=== PATIENT | female | born 1990 | race Caucasian/White ===

== ENCOUNTER 2016-10-30 20:40 | Observation (INO) | payer BC ==
[~2016-10-30] VITALS: Ht 165.1 cm; Wt 67.7 kg
[~2016-10-30 20:40] MED LIST: DOCU100T10 PO; FERR325C PO; HYDR-4246 PO; IBUP-1547 PO
[2016-10-30 20:45] VITALS: BP 126/72; PULSE 67; RESP 20; TEMP 98.1; O2SAT 100
--- OUTSIDE RECORDS SUMMARY | 2016-10-30 20:48 | XMS REPORT | Continuity of Care Document ---
Author Author [facility] Organization [facility] Address Unknown Phone Unavailable Support Name Relationship Address Phone LETTY ANDRES MD Caregiver [address] [place] [address] [address] [place] [address] Unavailable LETTY ANDRES MD Caregiver [address] [place] [address] [address] [place] [address] Unavailable NINA PINZON Next Of Kin [address] [place], [place] [address] Insurance Providers Guarantor Zoe Duarte Address [address] [place] [address] Email DENIED 16 Payer [facility] Policy Number [id number] Subscriber's Name BryceNina Francisco Relationship 01 Spouse Group Number [id number] Advance Directives Directive Response Recorded Date/Time Ordered Resuscitation Status Full Code 10/23/16 6:27am Resuscitation Documents on File No 10/23/16 7:10am DPOA for Healthcare Only No 10/23/16 7:10am Living Will No 10/23/16 7:10am Problems Active Problems Medical Problem Onset Date Status Dehydration Unknown Unknown RUQ abdominal pain Unknown Medications Current Home Medications Medication Dose Units Route Directions Days Qty Instructions Start Date Docusate Sodium (Stool Softener) 100 Mg Tablet 1 Tab Oral Daily 10/10/16 Ferrous Sulfate (Iron) 325 Mg Capsule.er 1 Tab Oral Daily BEST WITH FOOD. 10/10/16 Hydrocodone/Acetaminophen (Salkum 5-325 Tablet) 5-325 Tablet 1-2 Tab Oral Every 4 Hours as needed for Pain 20 Tablet 10/24/16 Ibuprofen 800 Mg Tablet 800 Mg Oral Q8h @ 0000/0800/1600 30 Tablet 10/24/16 Past Home Medications Medication Directions Ordered Status Doxylamine/Pyridoxine Hcl (Lamar Araujo 10-10 Mg Tablet) 1 Each Tablet., 2 Oral As Needed 04/16/16 Discontinued Hydrocodone/Acetaminophen (Salkum 5-325 Tablet) 5-325 Tablet, 1 Tab Oral Every 4 Hours as needed for Pain 04/16/16 Discontinued Metoprolol Tartrate 25 Mg Tablet, 25 Mg Oral Twice Daily With Meals as needed for Anxiety/Airhunger/Agitation 09/10/16 Discontinued Tenaha-3 Fatty Acids/Fish Oil (Tenaha 3 1,000 Mg Softgel) 1 Each Capsule, Oral Daily 04/16/16 Discontinued Pnv95/Ferrous Fumarate/Fa ( Tablet) 1 Each Tablet, 1 Tab Oral Daily 04/16/16 Discontinued Social History Social History Problem Response Recorded Date/Time Onset Date Status Reason for Hospitalization 10/24/2016 6:21pm Not Applicable Not Applicable Hx Substance Use No 10/23/2016 7:10am Not Applicable Not Applicable Query Response Start Date Stop Date Smoking Status Never smoker Hospital Discharge Instructions Instructions: Care Instructions: Reason for Hospitalization: I was in the hospital because (patient own words): to have a baby Discharge Diet: regular Discharge Activity: as reviewed Follow Up Appointments: Appointment with Dr Andres 12-04-16 at 2:00pm Pending Lab / Results: No Pending Lab Patient Instructions: See Dismissal Instructions Wound/Incision Care: n/a Pain Management/Treatment: RXs provided Expected Signs/Symptoms: as reviewed Notify Physician If: any concerns During Business Hours:: Please call the physician's office at [phone] After Business Hours:: Please call [phone] and have the milk drying machine operator page the physician. Condition at time of discharge: Good Plan of Care Discharge Date 10/24/16 7:18pm Disposition 01 DISCHARGED HOME, SELF-CARE Instructions/Education Provided [facility] Vaginal Delivery Prescriptions See Medication Section Care Plan and Goals See Discharge Instructions Section Functional Status Query Response Date Recorded Mobility Status Ambulatory October 24, 2016 6:21pm Assistive Devices None October 24, 2016 6:21pm Activity Limitations None October 24, 2016 6:21pm Feeding Ability Independent October 24, 2016 6:21pm Toileting Ability Independent October 24, 2016 6:21pm Grooming Ability Independent October 24, 2016 6:21pm Dressing Ability Independent October 24, 2016 6:21pm Driving Ability Independent October 24, 2016 6:21pm Housework Ability Independent October 24, 2016 6:21pm Meal Preparation Ability Independent October 24, 2016 6:21pm Stair Climbing Ability Independent October 24, 2016 6:21pm Ability to complete ADL's impeded by No change October 24, 2016 6:21pm Cognitive/Perceptual Impairments None October 24, 2016 6:21pm Preferred Method of Learning Hands on October 23, 2016 6:46am Allergies, Adverse Reactions, Alerts Allergen Type Severity Reaction Status Last Updated Latex Allergy Intermediate RASH Active 10/23/16 Immunizations Query Response on File Recorded Date/Time Hx Influenza Vaccination Y fall 201404/16/16 11:56am Hx Pneumococcal Vaccination No 04/16/16 11:56am Hx Influenza Vaccination Y fall 201404/16/16 11:56am Influenza Vaccine Hx Apr 2016 10/23/16 7:10am Tdap Vaccine Hx 201310/23/16 7:10am Vital Signs Acute Vital Signs Vital Response Date/Time Temperature (Fahrenheit) 98.5 deg F (96.8 - 99.1) 10/24/2016 7:10pm Temperature (Calculated Celsius) 36.15946 degrees C (36.0 - 37.3) 10/24/2016 7:10pm Pulse Rate (adult) 75 bpm (60 - 100) 10/24/2016 7:10pm Respiratory Rate 16 breaths/min (10 - 20) 10/24/2016 7:10pm O2 Sat by Pulse Oximetry 97 % (90 - 100) 10/24/2016 9:57am Oxygen Delivery Method Room Air 10/24/2016 9:57am Blood Pressure 105/72 mm Hg 10/24/2016 7:10pm Blood Pressure Source Automatic Cuff 10/24/2016 7:10pm Height (Feet) 5 feet 10/23/2016 7:10am Height (Inches) 4.00 inches 10/23/2016 7:10am Weight (Kilograms) 77.200 kg 10/23/2016 7:10am Height 5 ft 4 in 10/10/2016 10:26am Weight 170.20 lb 10/23/2016 7:10am Body Mass Index 29.0 kg/m^2 10/23/2016 7:10am Results Laboratory Results Test Name Result Units Flags Reference Collection Date/Time Result Date/ Time Comments Urine Collection Type CLEANCATCH-MIDSTREAM 09/25/2016 8:56pm 2016 9:01pm Urine Color YELLOW YELLOW 09/25/2016 8:56pm 09/25/2016 9:01pm Urine Turbidity CLEAR CLEAR 09/25/2016 8:56pm 09/25/2016 9:01pm Urine Specific [place] <=1.005 L 1.015-1.025 09/25/2016 8:56pm 2016 9:01pm Urine pH 6.0 5.0-8.0 09/25/2016 8:56pm 09/25/2016 9:01pm Urine Leukocyte Esterase NEGATIVE NEGATIVE 09/25/2016 8:56pm 2016 9:01pm Urine Nitrite NEGATIVE NEGATIVE 09/25/2016 8:56pm 09/25/2016 9:01pm Urine Protein NEGATIVE NEGATIVE 09/25/2016 8:56pm 09/25/2016 9:01pm Urine Glucose (UA) NEGATIVE NEGATIVE 09/25/2016 8:56pm 09/25/2016 9: 01pm Urine Ketones NEGATIVE NEGATIVE 09/25/2016 8:56pm 09/25/2016 9:01pm Urine Urobilinogen 0.2 EU/DL NORMAL 09/25/2016 8:56pm 09/25/2016 9: 01pm Urine Bilirubin NEGATIVE NEGATIVE 09/25/2016 8:56pm 09/25/2016 9: 01pm Urine Blood NEGATIVE NEGATIVE 09/25/2016 8:56pm 09/25/2016 9:01pm Urinalysis Comment MICROSCOPIC NOT IND. 09/25/2016 8:56pm 2016 9:01pm White Blood Count 6.7 T/MM3 4.5-11.0 10/23/2016 6:49am 10/23/2016 7: 00am Red Blood Count 3.51 M/MM3 L 4.00-5.20 10/23/2016 6:49am 10/23/2016 7: 00am Hemoglobin 8.8 GM/DL L 12-16 10/23/2016 6:49am 10/23/2016 7:00am Hematocrit 28.8 % L 36-46 10/23/2016 6:49am 10/23/2016 7:00am Mean Corpuscular Volume 82.1 UM3 80-100 10/23/2016 6:49am 10/23/2016 7: 00am Mean Corpuscular Hemoglobin 25.1 UUG L 26-34 10/23/2016 6:49am 2016 7:00am Mean Corpuscular Hemoglobin Concent 30.6 GM/DL L 31-37 10/23/2016 6:49am 10/23/2016 7:00am RDW Standard Deviation 37.7 FL 36.9-50.2 10/23/2016 6:49am 10/23/2016 7 :00am Platelet Count 293 T/MM3 130-400 10/23/2016 6:49am 10/23/2016 7:00am Mean Platelet Volume 9.6 UM3 9.4-12.4 10/23/2016 6:49am 10/23/2016 7: 00am Procedures Procedure Status Date Provider(s) non-stress test Completed 09/09/16 non-stress test Completed 09/25/16 Urinalysis auto w/o scope Completed 09/25/16 Eval amniotic fluid protein Completed 09/25/16 Encounters Encounter Location Arrival/Admit Date Discharge/Depart Date Attending Provider Discharged Inpatient [facility] 10/23/16 6:22am 10/24/16 7:18pm LETTY ANDRES MD Departed [facility] 09/25/16 8:43pm 09/25/16 10:00pm LETTY ANDRES MD Departed [facility] 09/09/16 11:38pm 09/10/16 12:29am LETTY ANDRES MD
[2016-10-30 21:54] LABS: BASOPHILS % (AUTO) 0.3 % (0-2); EOSINOPHILS # (AUTO) 0.1 T/MM3 (0-0.5); EOSINOPHILS % (AUTO) 0.9 % (0-4); HCT - HEMATOCRIT 27.7 % (36-46); HGB - HEMOGLOBIN 8.6 GM/DL (12-16); IMMATURE GRANULOCYTE # (AUTO) 0.08 T/MM3 (0.00-0.03); IMMATURE GRANULOCYTE % (AUTO) 0.9 % (0.0-0.5); LYMPHOCYTES # (AUTO) 1.3 T/MM3 (1-4.8); LYMPHOCYTES % (AUTO) 14.6 % (23-45); MEAN CORPUSCULAR HGB 25.4 UUG (26-34); MEAN CORPUSCULAR VOLUME 81.7 UM3 (80-100); MONOCYTES # (AUTO) 0.5 T/MM3 (0-0.8); MONOCYTES % (AUTO) 5.5 % (0-9.0); NEUTROPHILS #(AUTO)-ABSOLUTE 6.8 T/MM3 (1.8-7.7); NEUTROPHILS % (AUTO) 77.8 % (33-66); RED BLOOD COUNT 3.39 M/MM3 (4.00-5.20); WBC - WHITE BLOOD COUNT 8.7 T/MM3 (4.5-11.0)
[2016-10-30 22:02] LABS: ALBUMIN 3.7 G/DL (3.5-5.0); ALBUMIN/GLOBULIN RATIO 1.2 RATIO (1.1-2.2); ALKALINE PHOSPHATASE 141 U/L (38-126); ALT (SGPT) 28 U/L (9-52); ANION GAP 9 MEQ/L (5-15); AST (SGOT) 16 U/L (14-36); BUN/CREATININE RATIO 17 RATIO (6-26); CALCIUM 8.7 MG/DL (8.4-10.2); CHLORIDE 108 MEQ/L (98-107); CO2 - CARBON DIOXIDE 25 MEQ/L (22-30); CREATININE 0.6 MG/DL (0.7-1.2); GLOMERULAR FILTRATION RATE 122; GLUCOSE 88 MG/DL (65-110); POTASSIUM 3.8 MEQ/L (3.6-5); SODIUM 142 MEQ/L (134-144); TOTAL PROTEIN 6.8 G/DL (6.3-8.2)
--- NOTE | 2016-10-30 22:24 | HPF ---
CHIEF COMPLAINT Pelvic pain one week . HISTORY OF PRESENT ILLNESS This 26-year-old white female, G2, P2, approximately one week called me this evening complaining of pelvic pain. She saw Dr. Andres today in the office and Dr. Andres started her on Augmentin, Zoloft and Ambien for uterine infection/pelvic pain, depression and not sleeping. She reports that she has taken one Augmentin and the pain has progressively gotten worse in her pelvis. She does not have a thermometer at home. She has states it also hurts when she urinates. She has not had a bowel movement in two days and she is worried about constipation as well. PAST MEDICAL HISTORY 1. Two previous vaginal deliveries, most recent being about a week ago by Dr. Andres. 2. Anemia. 3. History of seizures with her first and a negative seizure workup. 4. History of kidney stones. 5. History of Chlamydia in 2016. 6. History of abnormal Pap smear. PAST SURGICAL HISTORY [place] tooth extraction. ALLERGIES None. MEDICATIONS Augmentin, Zoloft and Ambien all started today with only one dose of Augmentin taken. vitamins. Iron. FAMILY HISTORY On OB flow sheet that is printed out and attached to the chart from her . PHYSICAL EXAMINATION VITAL SIGNS: Vital signs are listed in EMR. She is afebrile on admission. ABDOMEN: Her abdomen is soft with no rebound tenderness but her uterus is extremely tender to palpation. EXTREMITIES: Legs are soft with negative Homans and no swelling or edema. PSYCHIATRIC: Affect is anxious. On further questioning the patient has not slept for "some time" for fear of something happening to the baby and exclusively breast-feeding. I have encouraged her to try to get some rest this evening since she is in the hospital and has nursing staff that can help. ASSESSMENT endometritis is the most likely diagnosis for her uterine tenderness. depression. Constipation. Sleep deprivation. PLAN CBC and CMP. Will IV rehydrate. I will order IV antibiotics and continue her on the Zoloft and Ambien that Dr. Andres started earlier today. Questions were answered to the patient and her 's satisfaction. HELDER
[2016-10-30] MEDS: CLINDAMYCIN 900mg in D5W 50ml IV SCH (22:27)
[2016-10-30] MEDS ORDERED: ZOLPIDEM 10 MG TABLET PO PRN (22:30)
[2016-10-30] MEDS ORDERED: HYDROCODONE/APAP 5 mg/325 mg TABLET PO PRN (22:45)
[2016-10-30] MEDS ORDERED: IBUPROFEN 800 MG TABLET PO PRN (22:45)
--- NOTE | 2016-10-30 22:45 | NUR ---
Pharmacy consult Page to pharmacist conventional machinist at [phone]. Call returned by Felix at [phone] for pharmacy consult to obtain dosage instructions for Gentamicin. Patient's weight reported to pharmacist. Order to give Gentamicin 120mg per IV every 8 hours. Order entered and patient notified. Call placed to boilerhouse mechanic, Katey, to request medication from pharmacy. Katey reports that she will bring it to unit shortly.
[2016-10-30] MEDS: AMPICILLIN 2 G in NORMAL SALINE 100 ML IV SCH (23:07)
[2016-10-30 23:18] VITALS: Ht 165.1 cm; Wt 67.7 kg
[2016-10-30] MEDS: D5LR 1,000 ML IV SCH (23:40)
[2016-10-30] MEDS: GENTAMICIN 120 MG in NORMAL SALINE 100 ML IV SCH (23:41)
[2016-10-31] VITALS (7 sets, daily range): BP systolic 107–122; BP diastolic 59–77; PULSE 53–71; RESP 16–18; TEMP 97.5–99.1; O2SAT 98–100
[2016-10-31] MEDS: AMPICILLIN 2 G in NORMAL SALINE 100 ML IV SCH ×4 (05:10→23:18)
[2016-10-31] MEDS: CLINDAMYCIN 900mg in D5W 50ml IV SCH ×2 (07:13→17:47)
[2016-10-31] MEDS: GENTAMICIN 120 MG in NORMAL SALINE 100 ML IV SCH ×2 (07:58→15:54)
--- NOTE | 2016-10-31 08:29 | NUR ---
GENTAMICIN CONSULT: Dx: Post . Current Renal Fx: SCr = 0.6mg/dl. Will give Gentamicin 120mg ivpb q8h. Will continue to monitor and make adjustments accordingly. Thank you.
[2016-10-31] MEDS: PRENATAL VITAMIN TABLET PO SCH (10:01)
[2016-10-31] MEDS: SERTRALINE 50 MG TABLET PO SCH (10:02)
[2016-10-31] MEDS: MILK OF MAGNESIA 30 ML SUSP PO SCH ×2 (10:06→21:00)
--- NOTE | 2016-10-31 10:29 | PNF ---
DATE: 10/31/2016 The patient was admitted last night for endometritis and started on ampicillin, gentamicin and clindamycin. She reports pain is improved this morning. She is still having pain but she is now able to move her legs and roll over in bed without being in exquisite pain. She got a little bit of sleep last night. Vital signs are stable. Will continue the triple antibiotic therapy until her pain completely resolves. Questions were answered to her satisfaction. HELDER
[2016-10-31] MEDS: D5LR 1,000 ML IV SCH (11:26)
--- NOTE | 2016-10-31 12:18 | NUR ---
Shift summary Patient has been up and about caring for self and baby. IV had been infusing then was locked after morning antibiotics. Has not taken anything for pain and reports pain much less than on admission. Now rates pain as "2-3". Reports not having a BM for several days and took MOM this morning. Has been cuddling baby and has napped off and on during 2nd part of the night. Was up and showered. Has been afebrile.
--- NOTE | 2016-10-31 17:23 | PNPDOC ---
Progress Note Date 10/31/16 Looks better feeling better fundal tenderness decreasing continue triple antibiotics through tomorrow q&a-krb MARICARMEN TORO MD Oct 31, 2016 17:23
[2016-11-01 00:05] VITALS: BP 108/68; PULSE 79; RESP 16; TEMP 97.8; O2SAT 99
[2016-11-01] MEDS ORDERED: METRONIDAZOLE 500 MG TABLET PO SCH ×2 (06:00→09:00)
[2016-11-01] MEDS: PRENATAL VITAMIN TABLET PO SCH (07:39)
[2016-11-01] MEDS: SERTRALINE 50 MG TABLET PO SCH (07:39)
[2016-11-01 07:57] VITALS: BP 108/67; PULSE 60; RESP 16; TEMP 98.2; O2SAT 97
[2016-11-01] MEDS ORDERED: FERROUS SULFATE 324 MG TABLET PO SCH (08:00)
[2016-11-01] MEDS ORDERED: CLAVULANATE PO SCH (09:00)
[2016-11-01] MEDS ORDERED: AMOXICILLIN PO SCH (09:00)
--- NOTE | 2016-11-01 11:49 | DSF ---
This patient was admitted two days ago with endometritis and severe pelvic pain. She was started on IV ampicillin/gentamicin/clindamycin and her pain has now resolved and she no longer has fundal tenderness. Her IV infiltrated at 2:00 a.m. this morning. That was her third or fourth IV start with multiple additional sticks and so Dr. Mckinley started her on p.o. antibiotics this morning. She is feeling fine this morning and is ready to go home. She really wanted to go home last night but I wanted more IV antibiotics. So we will send her home today. She already has prescription at home for Augmentin which we will have her do for a week. She will continue the Zoloft and the Ambien p.r.n. She will continue her vitamins and iron. She will follow up with Dr. Andres. She will call if pain or fever returns. Questions were answered to her and her significant other's satisfaction. HELDER
--- NOTE | 2016-11-01 14:00 | NUR ---
Dismissal instuctions Reviewed by Asmita Mera. Verbalized understanding. Dismissed ambulatory accompanied by and baby.
--- NOTE | 2016-11-04 16:45 | NUR ---
FOLLOW UP CALL ATTEMPT LEFT MESSAGE ON THIS DATE.
== END 2016-11-01 10:00 | disposition home or self-care (01) ==
LOC: MC 20:40
PROVIDERS: ADMIT Obstetrics & Gynecology; ATTEND Obstetrics & Gynecology
DX: O86.12 Endometritis following delivery (principal); F53 Mental and behavioral disorders associated with the puerperium, not elsewhere classified; O99.345 Other mental disorders complicating the puerperium; F41.9 Anxiety disorder, unspecified; O99.63 Diseases of the digestive system complicating the puerperium; K59.00 Constipation, unspecified; Z72.820 Sleep deprivation; O90.81 Anemia of the puerperium; D64.9 Anemia, unspecified
CPT/HCPCS: 36415; 80053; 85025; 96361; 96365; 96366; 96367; 99218; J0290; J1580; J7050; J7121